=== PATIENT | male | born 1985 | race Caucasian/White ===

== ENCOUNTER 2022-02-28 18:29 | Emergency (ER) | payer SELFPAY ==
[~2022-02-28] VITALS: Ht 190.5 cm; Wt 143.8 kg
[2022-02-28] MEDS ORDERED: CYCLOBENZAPRINE5 M3 PO (19:42)
[2022-02-28] MEDS ORDERED: PREDNISONE20 M1 PO (19:42)
== END 2022-02-28 19:55 | disposition home or self-care (01) ==
LOC: ED 18:29
DX: M54.50 Low back pain, unspecified (principal); G89.29 Other chronic pain